=== PATIENT | male | born 1965 | race Caucasian/White ===

== ENCOUNTER 2019-04-14 11:05 | Outpatient (CLI) | payer BC, SELFPAY ==
--- NOTE | 2019-04-14 | XR_ITS ---
WS: [id number] PROCEDURE: XR chest 2V* [id number] CLINICAL INFORMATION: COUGH COMPARISON: May 21, 2015 FINDINGS: Heart: Normal cardiac silhouette. Lungs: Lungs are clear. No consolidation or pleural fluid. Bones: Normal visualized bony structures. XR/XR chest 2V* [id number] IMPRESSION: Normal chest
== END 2019-04-14 11:06 | disposition home or self-care (01) ==
LOC: RADOUTREAD 13:13
PROVIDERS: Family Provider Internal Medicine; Visit Provider Internal Medicine
DX: Z76.89 Persons encountering health services in other specified circumstances (principal)

== ENCOUNTER → 2019-09-12 12:41 | Outpatient (BNVA) | payer BC, SELFPAY | PROVIDERS: Absent Provider Dermatology; Family Provider Internal Medicine; Referring Provider Dermatology; Visit Provider Dermatology | DX: L71.9 Rosacea, unspecified (principal); L08.1 Erythrasma; L73.8 Other specified follicular disorders; L91.8 Other hypertrophic disorders of the skin; D22.9 Melanocytic nevi, unspecified; L82.1 Other seborrheic keratosis; L81.7 Pigmented purpuric dermatosis | CPT/HCPCS: 99203 ==

== ENCOUNTER → 2019-11-15 13:56 | Outpatient (BNVA) | payer BC, SELFPAY | PROVIDERS: Family Provider Internal Medicine; Visit Provider Dermatology | DX: L71.9 Rosacea, unspecified (principal); L08.1 Erythrasma; L82.1 Other seborrheic keratosis | CPT/HCPCS: 99213 ==

== ENCOUNTER 2021-10-02 15:53 | Outpatient (CLI) | payer BC, SELFPAY ==
--- NOTE | 2021-10-02 16:01 | CT_ITS ---
WS: [id number] CT CHEST WITHOUT INTRAVENOUS CONTRAST HISTORY: MASS OF RIGHT LUNG TECHNIQUE: Contiguous 5 mm axial imaging performed on the thorax. Coronal and sagittal reformats are submitted. All CT scans at [facility] use at least one of these dose optimization techniques: automated exposure control; mA and/or kV adjustment per patient size (includes targeted exams where dose is matched to clinical indication); or iterative reconstruction. CONTRAST: None DLP: 786.17 mGy.cm COMPARISON: 07/25/2015 Lungs and central airway: Endobronchial soft tissue mass in the RIGHT upper lobe. Mass is centered in the bronchus and demonstrates a mild degree imaging pattern. The mass in the entirety measures 25 x 10 mm. Distal to the endobronchial mass are a few scattered groundglass nodules. No additional mass o r nodule. No additional endobronchial lesions. Pleura: Normal. No pleural effusion. Heart and pericardium: Normal size heart with no pericardial effusion. Mediastinum and manuel: No mediastinum or hilar adenopathy. Vessels: Scattered coronary artery calcifications. No aortic aneurysm. Normal size aorta. Chest wall and lower neck: No soft tissue masses. Upper abdomen: Hepatic steatosis. Visualized gallbladder is negative. No adrenal mass. Small amount o f debris in the distal esophagus is probably from reflux disease. Osseous structures: No destructive process. CT/CT chest wo con [id number] IMPRESSION: 1. Branching endobronchial lesion in the RIGHT upper lobe. Endobronchial mass measures 25 x 10 mm. Recommend bronchoscopy for further evaluation. Differentia l includes benign and malignant etiology. There is mild postobstructive inflamm atory changes distal to the endobronchial lesion. 2. No adenopathy.
== END 2021-10-02 15:54 | disposition home or self-care (01) ==
LOC: RAD 15:57
PROVIDERS: PCP Internal Medicine; Visit Provider Internal Medicine
DX: R91.8 Other nonspecific abnormal finding of lung field (principal)
CPT/HCPCS: 71250

== ENCOUNTER → 2021-10-16 14:30 | Outpatient (BNVA) | payer BC, SELFPAY | PROVIDERS: PCP Internal Medicine; Visit Provider Internal Medicine Critical Care Medicine | DX: J45.909 Unspecified asthma, uncomplicated (principal); R06.02 Shortness of breath; R91.8 Other nonspecific abnormal finding of lung field | CPT/HCPCS: 82785; 85025; 86003 ==

== ENCOUNTER → 2022-12-11 14:52 | Outpatient (BNVA) | payer OTHER, SELFPAY | PROVIDERS: Referring Provider Family Medicine; Visit Provider Family Medicine | DX: I10 Essential (primary) hypertension (principal); Z00.00 Encounter for general adult medical examination without abnormal findings | CPT/HCPCS: 80053; 80061; 83735; 85025 ==

== ENCOUNTER → 2023-06-30 10:47 | Outpatient (BNVA) | payer OTHER, SELFPAY | PROVIDERS: PCP Family Medicine; Visit Provider Clinical Nurse Specialist Adult Health | DX: R30.0 Dysuria (principal); N39.0 Urinary tract infection, site not specified | CPT/HCPCS: 81000; 87086 ==

== ENCOUNTER → 2024-06-27 08:49 | Outpatient (BNVA) | payer OTHER, SELFPAY | PROVIDERS: PCP Family Medicine; Visit Provider Family Medicine | DX: I10 Essential (primary) hypertension (principal); Z12.5 Encounter for screening for malignant neoplasm of prostate; M25.50 Pain in unspecified joint; R31.9 Hematuria, unspecified | CPT/HCPCS: 80053; 80061; 81003; 85651; G0103 ==

== ENCOUNTER → 2024-09-19 08:31 | Outpatient (BNVA) | payer OTHER, SELFPAY | PROVIDERS: PCP Family Medicine; Visit Provider Family Medicine | DX: R59.9 Enlarged lymph nodes, unspecified (principal); E78.5 Hyperlipidemia, unspecified | CPT/HCPCS: 80061; 85025 ==